=== PATIENT | male | born 1990 | race Caucasian/White ===

== ENCOUNTER 2024-08-15 11:45 | Emergency (ER) | payer OTHER ==
[~2024-08-15] VITALS: Ht 175.3 cm; Wt 81.6 kg
[2024-08-15] VITALS (7 sets, daily range): BP systolic 121–133; BP diastolic 79–93
[~2024-08-15 11:45] MED LIST: AMOXICILLIN875 MG OR; AMOXIL500 MG OR
[2024-08-15] MEDS ORDERED: ISOVUE-300 (Iopamidol) 100 ML SDV IV ONE (12:25)
[2024-08-15] MEDS ORDERED: Barium Sulfate (Readi-Cat 2 Banana) 450 ML/BTL PO ONE (12:25)
[2024-08-15] MEDS ORDERED: Barium Sulfate (Readi-Cat 2 Berry) 450 ML/BTL PO ONE (12:25)
[2024-08-15] MEDS ORDERED: DIATRIZOATE MEGLUMINE & SODIUM 30 ML/BTL PO ONE (12:25)
[2024-08-15 12:55] LABS: BASO% 0.8 % (0-3); EOS% 5.4 % (0-8); HEMATOCRIT 48.1 % (39.0-50.0); HEMOGLOBIN 16.1 g/dl (14.0-18.0); IMMATURE GRANULOCYTES 0.6 % (0.0-5.0); LYMPH% 21.5 % (15-41); MEAN CELL VOLUME 96.4 fL CALC (80.0-100.0); MEAN CORPUSCULAR HGB 32.3 pG CALC (26.0-32.0); MEAN CORPUSCULAR HGB CONC 33.5 g/dL CAL (32.0-36.0); MONO% 8.5 % (2-13); NEUT# 6.19 thou/uL (1.82-7.42); NEUT% 63.2 % (42-76); RED BLOOD COUNT 4.99 mill/uL (4.70-6.10); RED CELL DISTRI WIDTH 12.1 % (11.5-15.5)
[2024-08-15 12:59] LABS: ALBUMIN 4.9 g/dL (3.2-5.0); ALKALINE PHOSPHATASE 89 u/l (38-126); AMYLASE 86 u/l (30-110); ANION GAP 17 (6-22 (CALC)); BILIRUBIN, TOTAL 0.8 mg/dL (0.2-1.3); BUN 14 mg/dL (9-20); BUN/CREATININE RATIO 16 (12-20 (CALC)); CARBON DIOXIDE 27 mmol/l (22-30); CHLORIDE 101 mmol/l (95-108); CREATININE 0.9 mg/dL (0.7-1.3); ESTIMATED GFR 114 ML/MIN (>=90 (CALC)); POTASSIUM 4.5 mmol/l (3.5-5.1); SGOT/AST 43 u/l (17-59); SODIUM 140 mmol/l (137-146); TOTAL PROTEIN 8.1 g/dL (6.3-8.2)
[2024-08-15 13:42] LABS: URINE BILIRUBIN - DIPSTICK Negative (NEGATIVE); URINE BLOOD DIPSTICK Negative (NEGATIVE); URINE GLUCOSE - DIPSTICK Negative (NEGATIVE); URINE KETONE Negative (NEGATIVE); URINE LEUK ESTERASE Negative (NEGATIVE); URINE NITRITE - DIPSTICK Negative (Negative); URINE PROTEIN - DIPSTICK Negative (NEG-TRACE); URINE SPECIFIC GRAVITY 1.015; URINE UROBILINOGEN - DIPSTICK 0.2 E.U./dL (0.2)
[2024-08-15 13:44] LABS: URINE COLOR Yellow
== END 2024-08-15 15:56 | disposition home or self-care (01) | DRG 392 ==
LOC: ED 11:45
PROVIDERS: Family Medicine; Nurse Practitioner Family
DX: R10.12 Left upper quadrant pain (principal); Z72.0 Tobacco use
CPT/HCPCS: Q9967